=== PATIENT | male | born 1990 | race Caucasian/White ===

== ENCOUNTER 2017-04-13 18:05 | Emergency (ER) | payer MEDICAID ==
[~2017-04-13] VITALS: Ht 180.3 cm; Wt 93.0 kg
[2017-04-13] MEDS ORDERED: ear drops (18:27)
--- NOTE | 2017-04-13 18:31 | NUR ---
PT IS IN THE ROOM #2B. DR MAO EVALUATED THEN PT.
--- NOTE | 2017-04-13 19:39 | NUR ---
Patient discharged home in stable conditon. Written and verbal after care instructions given. Patient verbalizes understanding of instructions.
[2017-04-13 19:40] VITALS: BP 137/87
== END 2017-04-13 19:41 | disposition home or self-care (01) ==
LOC: ER 18:09
DX: H60.92 Unspecified otitis externa, left ear (principal)
CPT/HCPCS: 99283; A4663

== ENCOUNTER 2017-06-08 20:27 | Emergency (ER) | payer MEDICAID ==
[~2017-06-08] VITALS: Ht 180.3 cm; Wt 90.7 kg
[~2017-06-08 20:27] MED LIST: ear drops
--- NOTE | 2017-06-08 21:48 | NUR ---
Pt to room, c/o cough, fever and sore throat. Pt seen by Dr. Rolle. Rapid strep negative. Pt stable for discharge per MD. Pt given ACI. Pt verbalized understanding of dc instructions. Pt ambulated out of er with steady gait.
[2017-06-08 21:50] VITALS: BP 128/58
== END 2017-06-08 21:50 | disposition home or self-care (01) ==
LOC: ER 20:28
DX: J40 Bronchitis, not specified as acute or chronic (principal); J02.9 Acute pharyngitis, unspecified
CPT/HCPCS: 36415; 86403; 87070; 99284; A4663

== ENCOUNTER 2019-06-28 11:00 | Emergency (ER) | payer MEDICAID ==
[~2019-06-28] VITALS: Ht 180.3 cm; Wt 86.2 kg
--- NOTE | 2019-06-28 11:10 | NUR ---
KEITH FUENTES AT BEDSIDE FOR MSE.
[2019-06-28] MEDS ORDERED: IBUPROFEN 600 MG TABLET PO ONE (11:15)
[2019-06-28] MEDS ORDERED: IBUPROFEN 600 MG TABLET ONE (11:19)
--- NOTE | 2019-06-28 11:44 | NUR ---
Patient discharged to home in stable conditon. Written and verbal after care instructions given. Patient verbalizes understanding of instructions. ALL BELONGINGS W/ PT. PT SELF-AMBULATED W/O DIFFICULTY.
[2019-06-28 11:46] VITALS: BP 120/77
== END 2019-06-28 11:47 | disposition home or self-care (01) ==
LOC: ER 11:00
DX: S40.012A Contusion of left shoulder, initial encounter (principal); F17.200 Nicotine dependence, unspecified, uncomplicated; X58.XXXA Exposure to other specified factors, initial encounter; Y93.67 Activity, basketball; Y92.89 Other specified places as the place of occurrence of the external cause; Y99.8 Other external cause status
CPT/HCPCS: 73030; A4663

== ENCOUNTER 2019-12-23 02:34 | Emergency (ER) | payer MEDICAID ==
[~2019-12-23] VITALS: Ht 180.3 cm; Wt 88.5 kg
--- NOTE | 2019-12-23 02:48 | NUR ---
PATIENT WAS MSE BY DR DUFFY IN ROM 03A. PATIENT A & O X3.
[2019-12-23] MEDS ORDERED: ONDANSETRON ODT 4 MG TAB.RAPDIS ONE (02:54)
[2019-12-23] MEDS ORDERED: NEOMY/BACITRA/POLYMYXIN B OINT UD PACKET TP ONE ×2 (02:54→03:00)
[2019-12-23] MEDS ORDERED: HYDROCODONE/APAP 5-325MG TABLET ONE (02:55)
[2019-12-23] MEDS ORDERED: HYDROCODONE/APAP 5-325MG TABLET PO ONE (03:00)
[2019-12-23] MEDS ORDERED: ONDANSETRON ODT 4 MG TAB.RAPDIS SL ONE (03:00)
[2019-12-23] MEDS ORDERED: POTASSIUM CHLORIDE 20 MEQ POWDER PACKET ONE (03:02)
--- NOTE | 2019-12-23 03:33 | NUR ---
Patient discharged to home in stable conditon. Written and verbal after care instructions given. Patient and father verbalizes understanding of instructions.
== END 2019-12-23 03:33 | disposition home or self-care (01) ==
LOC: ER 02:45
DX: S82.62XA Displaced fracture of lateral malleolus of left fibula, initial encounter for closed fracture (principal); Z87.891 Personal history of nicotine dependence; W05.2XXA Fall from non-moving motorized mobility scooter, initial encounter; Y93.89 Activity, other specified; Y92.89 Other specified places as the place of occurrence of the external cause; Y99.8 Other external cause status
CPT/HCPCS: 73590; 73610; A4217; A4663; Q0162

== ENCOUNTER 2020-10-30 12:15 | Emergency (ER) | payer MEDICAID ==
[~2020-10-30] VITALS: Ht 180.3 cm; Wt 90.7 kg
[2020-10-30] MEDS ORDERED: ONDANSETRON 4 MG/2 ML VIAL IV ONE (13:15)
[2020-10-30] MEDS ORDERED: IV NORMAL SALINE 1000 ML BAG IV ONE (13:15)
[2020-10-30] MEDS ORDERED: HYDROMORPHONE 1 MG/1 ML DISP.SYRIN IV ONE (13:15)
[2020-10-30] MEDS ORDERED: ONDANSETRON 4 MG/2 ML VIAL ONE (13:19)
[2020-10-30] MEDS ORDERED: HYDROMORPHONE 1 MG/1 ML DISP.SYRIN ONE (13:19)
[2020-10-30 13:30] LABS: BASOPHILS % (AUTO) 0.6 % (0.0-2.0); EOSINOPHILS # (AUTO) 0.1 K/uL (0.0-0.7); EOSINOPHILS % (AUTO) 1.2 % (0.0-7.0); HEMOGLOBIN 15.4 g/dL (12.5-16.3); LYMPHOCYTES # (AUTO) 0.9 K/uL (20.0-40.0); LYMPHOCYTES % (AUTO) 15.9 % (20.5-51.5); MEAN CORPUSCULAR HGB CONC 33 g/dL (32.5-36.3); MEAN CORPUSCULAR VOLUME 85.3 fL (73.0-96.2); MONOCYTES # (AUTO) 0.5 K/uL (2.0-10.0); MONOCYTES % (AUTO) 8.1 % (0.0-11.0); NEUTROPHILS # (AUTO) 4.1 K/uL (1.8-8.9); NEUTROPHILS % (AUTO) 74.2 % (38.5-71.5); PLATELET COUNT (AUTO) 270 K/uL (152-348); RED BLOOD CELL COUNT(AUTO) 5.51 MIL/uL (4.06-5.63); WHITE BLOOD COUNT (AUTO) 5.6 K/uL (3.6-10.2)
[2020-10-30 13:54] LABS: BILIRUBIN,DIRECT 0.1 mg/dL (0.0-0.2); BILIRUBIN,TOTAL 0.5 mg/dL (0.2-1.0); CREATININE 0.8 mg/dL (0.6-1.3); POTASSIUM 3.9 mmol/L (3.5-5.1); TOTAL PROTEIN, SERUM 7.8 g/dL (6.4-8.2)
--- NOTE | 2020-10-30 14:22 | NUR ---
Patient discharged to home in stable condition. Written and verbal after care instructions given. Patient verbalizes understanding of instructions. Stressed follow up or return to ER for worsening s/s.
[2020-10-30 15:27] LABS: *BILIRUBIN,URIN NEGATIVE (NEGATIVE); *BLOOD, URINE NEGATIVE (NEGATIVE); *CLARITY,URINE CLEAR (CLEAR); *COLOR,URINE YELLOW (YELLOW); *KETONES,URINE NEGATIVE (NEGATIVE); *UROBILINOGEN,URINE 0.2 E.U./dl (NORMAL); LEUKOCYTE ESTERASE ,URINE NEGATIVE (NEGATIVE); NITRITE, URINE NEGATIVE (NEGATIVE); UGLUCOSE NEGATIVE (NEGATIVE)
== END 2020-10-30 14:23 | disposition home or self-care (01) ==
LOC: ER 12:15
DX: R10.11 Right upper quadrant pain (principal); R11.0 Nausea
CPT/HCPCS: 36415; 76705; 80048; 80076; 81003; 83690; 84484; 85025; 96374; 96375; 99284; J1170; J2405; 70030-TC; A4663; J7030

== ENCOUNTER 2022-05-25 12:20 | Emergency (ER) | payer MEDICAID ==
[~2022-05-25] VITALS: Ht 180.3 cm; Wt 90.7 kg
--- NOTE | 2022-05-25 13:03 | NUR ---
Placed icepack on pt's right ankle.
[2022-05-25] MEDS ORDERED: IBUP-1955 PO (13:12)
--- NOTE | 2022-05-25 13:21 | NUR ---
Discussed use of crutches -- he brought 1 to ER, has 2nd at home. Pt given RX and d/c instructions, pt verbalized understanding.
== END 2022-05-25 13:29 | disposition home or self-care (01) ==
LOC: ER 12:20
DX: S93.402A Sprain of unspecified ligament of left ankle, initial encounter (principal); W18.49XA Other slipping, tripping and stumbling without falling, initial encounter; Y93.67 Activity, basketball; Y92.310 Basketball court as the place of occurrence of the external cause
CPT/HCPCS: 73590; 73610; A4663